=== PATIENT | female | born 1965 | race Caucasian/White ===

== ENCOUNTER → 2024-04-12 14:39 | Outpatient (REF) | payer OTHER, SELFPAY | LOC: WDC 14:39 | PROVIDERS: ATTENDING PHYSICIAN Obstetrics & Gynecology Gynecology; FAMILY PHYSICIAN Family Medicine | DX: Z12.31 Encounter for screening mammogram for malignant neoplasm of breast (principal) | CPT/HCPCS: 77063; 77067 ==

== ENCOUNTER → 2024-08-10 12:32 | Outpatient (REF) | payer OTHER, SELFPAY | LOC: WDC 12:32 | PROVIDERS: ATTENDING PHYSICIAN Obstetrics & Gynecology Gynecology; FAMILY PHYSICIAN Family Medicine | DX: R92.2 Inconclusive mammogram (principal) | CPT/HCPCS: 76641 ==

== ENCOUNTER → 2025-04-26 18:05 | Outpatient (REF) | payer OTHER, SELFPAY | LOC: WDC 18:05 | PROVIDERS: ATTENDING PHYSICIAN Obstetrics & Gynecology Gynecology; FAMILY PHYSICIAN Family Medicine | DX: Z12.31 Encounter for screening mammogram for malignant neoplasm of breast (principal) | CPT/HCPCS: 77063; 77067 ==

== ENCOUNTER → 2025-06-01 10:53 | Outpatient (REF) | payer OTHER, SELFPAY | LOC: RAD 10:53 | PROVIDERS: ATTENDING PHYSICIAN Obstetrics & Gynecology Gynecology; FAMILY PHYSICIAN Family Medicine | DX: Z78.0 Asymptomatic menopausal state (principal) | CPT/HCPCS: 77080 ==